=== PATIENT | female | born 1995 ===

== ENCOUNTER 2023-03-21 08:54 | Outpatient (REF) | payer OTHER, SELFPAY | END 2023-03-21 08:55 | disposition home or self-care (01) | LOC: HO.SH 08:54 | PROVIDERS: Visit Provider Family Medicine | DX: Z01.118 Encounter for examination of ears and hearing with other abnormal findings (principal); H90.41 Sensorineural hearing loss, unilateral, right ear, with unrestricted hearing on the contralateral side; H93.11 Tinnitus, right ear | CPT/HCPCS: 92550; 92557; 92588 ==